=== PATIENT | male | born 1945 | race Caucasian/White ===

== ENCOUNTER 2017-11-23 20:56 | Emergency (ER) | payer MEDICARE ==
[2017-11-23 21:31] LABS: Clarity Cloudy (Clear)
[2017-11-23 21:33] LABS: Specific Gravity, Urine 1.035 (1.002-1.036)
[2017-11-23 21:39] LABS: Glucose, Urine (Dipstick) Unable to Interpret mg/dL (Negative); Leukocyte Unable to Interpret (Negative); Nitrite Unable to Interpret (Negative); Protein, Urine (Dipstick) Unable to Interpret mg/dL (Neg-Trace); Urobilinogen UNABLE TO INTERPRET mg/dL (0.2-1.0)
[2017-11-23 21:40] LABS: Bilirubin Unable to Interpret (Negative); Blood, Urine Unable to Interpret (Negative); RBC/HPF GREATER THAN 50-TNTC HPF (0-3); Squamous Epithelial 0-3 HPF (0-3)
[2017-11-23] MEDS ORDERED: Sulfameth/Trimethoprim DS 800-160mg TAB ONE (21:55)
== END 2017-11-23 22:45 | disposition home or self-care (01) ==
LOC: BURERS 20:56
DX: N39.0 Urinary tract infection, site not specified (principal); F17.210 Nicotine dependence, cigarettes, uncomplicated
CPT/HCPCS: 51702; 51798; 81003; 81015; 87086